=== PATIENT | male | born 1975 ===

== ENCOUNTER 2018-11-30 05:47 | Emergency (ER) | payer BC, OTHER, SELFPAY ==
[~2018-11-30] VITALS: Ht 162.6 cm; Wt 75.2 kg
--- NOTE | 2018-11-30 05:59 | NUR ---
PT HERE FOR LEFT EYE REDNESS AND ITCHING THAT HE WOKE UP TO THIS MORNING.
[2018-11-30] MEDS ORDERED: FLUORESCEIN OPHTHALMIC 1 MG STRIP ONE (06:53)
[2018-11-30] MEDS ORDERED: PROPARACAINE OPHTH 0.5%, 15ML ONE (06:53)
--- NOTE | 2018-11-30 06:57 | NUR ---
REPORT GIVEN TO KILO QUINTANA.
--- NOTE | 2018-11-30 07:00 | NUR ---
PT. IS SITTING IN THE EYE CHAIR, RESTING WITHOUT CONCERNS.
--- NOTE | 2018-11-30 07:30 | NUR ---
Patient/Caregiver given discharge instructions and they have confirmed that they understand the instructions. Patient ambulatory with steady gait. Pt. has his prescription in his hand.
[2018-11-30 07:31] VITALS: BP 160/93
== END 2018-11-30 07:34 | disposition home or self-care (01) ==
LOC: ED 07:30
DX: H10.022 Other mucopurulent conjunctivitis, left eye (principal)
CPT/HCPCS: 99283